=== PATIENT | male | born 1995 | race Two or more races ===

== ENCOUNTER 2019-04-03 09:46 | Emergency (ER) | payer SELFPAY ==
[~2019-04-03] VITALS: Ht 170.2 cm; Wt 60.2 kg
[2019-04-03 09:54] VITALS: BP 126/78
--- NOTE | 2019-04-03 10:39 | NUR ---
BEDSIDE REPORT TO TERRIE HARMON.
== END 2019-04-03 10:53 | disposition home or self-care (01) ==
LOC: ED 10:49
DX: B37.42 Candidal balanitis (principal); F17.200 Nicotine dependence, unspecified, uncomplicated
CPT/HCPCS: 99282